=== PATIENT | male | born 1985 | race Two or more races ===

== ENCOUNTER 2025-02-28 04:22 | Emergency (ER) | payer OTHER ==
[~2025-02-28] VITALS: Ht 162.6 cm; Wt 81.6 kg
[2025-02-28] MEDS ORDERED: LORAZEPAM INJ 2 MG/ML VIAL ONE (04:33)
[2025-02-28] MEDS ORDERED: HALOPERIDOL LACTATE INJ 5 MG/ML VIAL ONE (04:33)
[2025-02-28] MEDS: HALOPERIDOL LACTATE INJ 5 MG/ML VIAL IM ONE (04:41)
[2025-02-28] MEDS: LORAZEPAM INJ 2 MG/ML VIAL IM ONE (04:41)
[2025-02-28 08:57] VITALS: BP 105/70; TEMP 98; O2SAT 99
== END 2025-02-28 08:58 ==
LOC: ER 04:50
DX: S93.491A Sprain of other ligament of right ankle, initial encounter (principal); F10.129 Alcohol abuse with intoxication, unspecified; R45.6 Violent behavior; Z65.3 Problems related to other legal circumstances; X50.1XXA Overexertion from prolonged static or awkward postures, initial encounter; Y93.89 Activity, other specified; Y92.89 Other specified places as the place of occurrence of the external cause; Y99.8 Other external cause status; Y90.9 Presence of alcohol in blood, level not specified
CPT/HCPCS: 99284; 96372; 73610; J2060; J1200; J1630